=== PATIENT | female | born 1940 | race Caucasian/White ===

== ENCOUNTER → 2018-07-03 | Outpatient (CLI) | payer OTHER ==
[~2018-07-03] VITALS: Ht 162.6 cm; Wt 62.9 kg
[~2018-07-03] MED LIST: ASPIRIN325 PO; MAXZIDE-25 MG1 EACH PO; METOPROLOL SUCC50 MG PO; NORCO 7.5-3251 EACH PO; PREMPRO 0.3 MG1 EACH PO; PREVACID 24HR15 MG PO; SIMVASTATIN40 MG PO; SYNTHROID100 MC1 PO
--- NOTE | ~2018-07-03 | HPC ---
[facility] [address] [place] [address] PAIN MANAGEMENT CONSULTATION Name: SERA COY Room #: REG [facility] Deangelo.#: [id number] Admission: 07/03/18 Attend Phys: Tejas Paul MD Discharge: Date of : 44 Report #: [id number] THIS REPORT FOR: //name// CC: Sotero Paul DATE OF SERVICE: 07/03/2018 CHIEF COMPLAINT: Back pain. HISTORY OF PRESENT ILLNESS: The patient is a 77-year-old female who has been referred to the Pain Clinic. She has a history of chronic pain since 1964. Complains of muscle spasms in her lower back at this juncture. Notes that the pain is worse with bending forward. Sitting can be problematic if she does it for a prolonged period of time. Described it as constant continuous cramping and aching sensation. Rates it as a 9 today. It usually as an 8.5. She has been treated for thyroid problems. She has pain in the lower portion of her back near the L5-S1 paraspinous area bilaterally. She has tried rhqv-ryu-ggetpxp medications. Feels that Flexeril at bedtime can be helpful. She has not had back surgery. Denies any bowel or bladder dysfunction as a result of this. ALLERGIES: SULFA. MEDICATIONS: Aspirin 325 mg, Zocor 40 mg, triamterene/hydrochlorothiazide 37.5/25, estrogen, Prempro 0.3 mg tablets, levothyroxine 100 mcg, metoprolol 50 mg daily, hydrocodone 7.5/325. PAST MEDICAL HISTORY: Thyroid disease, joint disease/arthritis. PAST SURGICAL HISTORY: Childbirth x 3, appendectomy. SOCIAL HISTORY: She is retired. REVIEW OF SYSTEMS: Generally good health, fatigue and weakness, wears glasses, glaucoma/cataracts, hearing loss/ringing in the ears, memory loss, confusion, glandular/hormone problem, thyroid. LABORATORY DATA: No laboratory values are available at the time of our interview. PAIN CLINIC ASSESSMENT/PQRS: 1. Osteoarthritis hands, back and ribs. 2. History of rheumatoid arthritis. 3. The patient is not being treated for osteoarthritis. 4. Height 5 feet 4 inches, weight 130 pounds, BMI is 23.8. [address] [address] PAIN MANAGEMENT CONSULTATION Name: SERA COY Room #: REG [facility]#: [id number] Admission: 07/03/18 Attend Phys: Tejas Paul MD Discharge: Date of : 44 Report #: [id number] 5. Vital signs: Blood pressure 127/47, pulse 67, respiratory rate 16, room air saturation 98%. 6. Pain intensity 06/15. 7. Fall risk. The patient has not fallen in the last 3 months. 8. Blood thinner. The patient is not on a blood thinning medication. 9. Hypertension. The patient is not being treated for hypertension. 10. Opioid therapy greater than 6 weeks. The patient is not on opioid medication on a long-term basis. 11. Risk assessment tool, using opioid medications, zero/3, low risk. 12. Functional assessment tool . 13. Recreational drug use. The patient denies use of recreational drugs. 14. Tobacco: The patient has never smoked. 15. Alcohol: The patient denies use of alcoholic beverages. PHYSICAL EXAMINATION: GENERAL: The patient is a well-developed, well-nourished white female. Appears her stated age. She is alert and oriented x 3. Affect is appropriate. Speech is fluent. HEENT: Normocephalic, atraumatic. Extraocular eye muscles intact. Sclerae nonicteric. Mucous membranes are moist. NECK: Without adenopathy or JVD. HEART: Regular rate. S1, S2. LUNGS: Clear to auscultation without rhonchi or rales. ABDOMEN: Nontender. EXTREMITIES: Upper extremity muscle strength is judged to be 5/5 for the major muscle groups. BACK: Low back area, the patient complains of pain and discomfort in the low back area. Notes pain and discomfort with palpation in the left and right posterior superior iliac spine area. Palpation in these areas help increase the patient's pain and discomfort. Anterior and posterior spring tests are negative. Edi sign is negative. Straight leg raises are negative. IMPRESSION: 1. Myofascial pain, low back area, left and right in the paraspinous area near the posterior superior iliac spine. 2. Thyroid disease. 3. Joint disease hands, back, ribs. RECOMMENDATIONS: We discussed treatment options with the patient. Risks and benefits of a trigger point injection to the affected areas were discussed. The patient has pain and discomfort which indicate trigger points in the left as well as the right posterior superior iliac spine area. The patient notes worsening of pain and these reproduce the pain and discomfort which she is complaining of in the low back area. PROCEDURE NOTE: The patient was placed on the bed, perpendicular to the bed. [facility] [address] [place] [address] PAIN MANAGEMENT CONSULTATION Name: SERA COY Room #: REG CL[facility]#: [id number] Admission: 07/03/18 Attend Phys: Tejas Paul MD Discharge: Date of : 42 Report #: [id number] The bed was elevated. A chair was placed under her feet. The patient lean forward as though she were going to tie her shoes. Palpation in the area of the left as well as the right posterior superior iliac spine area reproduced the patient's pain and discomfort. We discussed the risks and benefits of trigger point injections. They include but are not limited to infection, increased muscle soreness, worsening of pain, no improvement in pain, bleeding, nerve damage. The patient elects to proceed. The patient's back was sterilely prepped with a chlorhexidine solution and allowed to dry the left and the right side. Her trigger point on the right side was identified near the gluteus rosalva and latissimus dorsi trigger point was noted. A 25-gauge needle was then advanced into the area of discomfort. The patient states this did reproduce her discomfort. Total of 80 mg Depo-Medrol, ____ 6 mL, of 0.5% bupivacaine was injected. The patient tolerated that injection well. The contralateral side was treated in a like manner. A 25-gauge needle was then advanced into the area of the gluteus rosalva near the latissimus dorsi. This did reproduce the patient's pain as well. A 25-gauge needle was advanced into the area of the trigger point. The patient states this was in the middle of the trigger point. Aspiration did not produce any pain. A total of 8 mL of 0.5% bupivacaine and 80 mg Depo-Medrol was injected. The patient tolerated the procedure well. There were no complications. She remained in the Pain Clinic for an appropriate amount of time. She will follow up in the future as needed. We would like to thank you for letting us participate in her care. We hope she can tell continues to improve. <ELECTRONICALLY SIGNED> By: Tejas Paul MD 07/20/18 [id number] Tejas Paul MD /nt
[2018-07-03 09:49] VITALS: BP 127/47
== END | disposition home or self-care (01) ==
LOC: PAIN 08:53
DX: M79.1 Myalgia (principal); G89.29 Other chronic pain; M54.9 Dorsalgia, unspecified; E07.9 Disorder of thyroid, unspecified; M19.90 Unspecified osteoarthritis, unspecified site; Z98.890 Other specified postprocedural states; Z88.2 Allergy status to sulfonamides; Z79.82 Long term (current) use of aspirin; Z79.899 Other long term (current) drug therapy; Z79.891 Long term (current) use of opiate analgesic; Z98.49 Cataract extraction status, unspecified eye

== ENCOUNTER → 2018-07-13 | Outpatient (CLI) | payer OTHER ==
[~2018-07-13] VITALS: Ht 162.6 cm; Wt 62.5 kg
[2018-07-13 09:44] VITALS: BP 116/67
== END | disposition home or self-care (01) ==
LOC: PAIN 07:11
DX: M79.18 Myalgia, other site (principal); M54.5 Low back pain; Z88.2 Allergy status to sulfonamides; Z79.891 Long term (current) use of opiate analgesic; Z98.890 Other specified postprocedural states

== ENCOUNTER → 2018-07-29 | Outpatient (CLI) | payer OTHER ==
[~2018-07-29] VITALS: Ht 162.6 cm; Wt 63.3 kg
[~2018-07-29] MED LIST changes: +NEURONTIN 300300 M1 PO
--- NOTE | ~2018-07-29 | HPC ---
[facility] [place] [address] [address] [place] [address] PAIN MANAGEMENT CONSULTATION Name: SERA COY Room #: REG [facility] M..#: [id number] Admission: 07/29/18 Attend Phys: Tejas Paul MD Discharge: Date of : 44 Report #: [id number] THIS REPORT FOR: //name// CC: Sotero Paul DATE OF SERVICE: 07/29/2018 REASON FOR FOLLOWUP: "Pain improved after the injection, but still it is really bad." HISTORY OF PRESENT ILLNESS: The patient is a 77-year-old female who has been seen in the Pain Clinic because of chronic pain. She underwent trigger point injections at the last visit, she gleaned benefits from those. She has noted a return of her pain and discomfort. She rates her pain as 8/10 at this juncture. She felt that the injections were helpful, but she still has pain, which has recurred. She is unable to engage in activities of daily living because of the pain. Walking is somewhat problematic because of the discomfort. She has returned to the Pain Clinic with the hopes of undergoing another treatment. ALLERGIES: SULFA. MEDICATIONS: Aspirin 325 mg, Zocor 40 mg, triamcinolone/hydrochlorothiazide 37.5/25, estrogen, Prempro 0.3 mg tablets, levothyroxine 100 mcg, metoprolol 50 mg daily, hydrocodone 7.5/325. PAIN CLINIC ASSESSMENT AND PQRS: 1. Osteoarthritis involving the hands, back, and ribs. 2. History of rheumatoid arthritis: The patient is being treated for rheumatoid arthritis. 3. Height 5 feet 4 inches, weight 139 pounds, BMI is 24. 4. Vital signs: Blood pressure 110/59, pulse 76, respiratory rate 16, room air saturation 98%. 5. Pain intensity: 8/10. 6. Fall risk: The patient has not fallen in the last 3 months. 7. Blood thinner: The patient is not on a blood thinning medication. 8. Hypertension: The patient is not being treated for hypertension. 9. Opioid therapy greater than 6 weeks: The patient is not receiving opioid medication on a regular basis. 10. Risk assessment tool: 0/3, low risk for opioid use. 11. Functional assessment tool: 42/70. 12. Recreational drug use: The patient denies use of recreational drugs. 13. Tobacco: The patient denies use of tobacco. 14. Alcohol use: The patient denies use of alcoholic beverages on a regular basis. [address] [address] PAIN MANAGEMENT CONSULTATION Name: SERA COY Room #: REG [facility]#: [id number] Admission: 07/29/18 Attend Phys: Tejas Paul MD Discharge: Date of : 44 Report #: [id number] PHYSICAL EXAMINATION: GENERAL: The patient is a well-developed, well-nourished, white female. She appears her stated age. She is alert and oriented x 3. Her affect is appropriate. Speech is fluent. HEENT: Normocephalic, atraumatic. Extraocular eye muscles intact. Sclerae nonicteric. Mucous membranes are moist. NECK: Without adenopathy or JVD. HEART: Regular rate. S1 and S2. EXTREMITIES: Upper extremity muscle strength is judged to be 5/5 for the major muscle groups. LUNGS: Clear to auscultation without rhonchi or rales. ABDOMEN: Nontender with bowel sounds present. LOW BACK: The patient has pain and discomfort in the lower portion of her back near the left and right posterior superior iliac spine areas. Palpation in these areas again reproduced pain and discomfort, which the patient is complaining of. Anterior and posterior spring tests are negative. Edi sign is negative. Straight leg raises are negative. IMPRESSION: 1. Myofascial pain involving the low back in the left and right paraspinous areas near the posterior superior iliac spine. 2. Thyroid disease. 3. Joint disease in hands, back, and ribs. RECOMMENDATIONS: We discussed treatment options with the patient. She improved after the last trigger point injections. Her pain has recurred. Palpation on the physical exam still reproduces pain and discomfort, which are of myofascial nature in the lower portion of her back. We will proceed with another injection. Risks and benefits of the procedure were again reviewed. They include but are not limited to infection, worsening of pain, bleeding or nerve damage. The patient elects to proceed. PROCEDURE NOTE: The patient was placed in a sitting position. She was perpendicular to the bed. A chair was placed under her feet. Her back was sterilely prepped with a Betadine solution. The patient's trigger points were noted on the left and the right side. A 25-gauge needle was then advanced on the right side into the area of the posterior superior iliac spine near the gluteus rosalva and latissimus dorsi. A 25-gauge needle was then advanced into the area of the trigger point. The patient states this did reproduce her pain. Aspiration of this area was negative. A total of 8 mL of 0.5% bupivacaine and 80 mg Depo-Medrol was injected on the left side. The right side was treated in a like fashion. At trigger point #2, a 25-gauge needle was advanced to the area of the gluteus rosalva and latissimus dorsi. Trigger point was noted. Aspiration was negative. Total of 8 mL of 0.5% bupivacaine and 80 mg Depo-Medrol was injected. The patient tolerated the procedure well. There were [facility] [address] [place] [address] PAIN MANAGEMENT CONSULTATION Name: SERA COY Room #: REG [facility].#: [id number] Admission: 07/29/18 Attend Phys: Tejas Paul MD Discharge: Date of : 42 Report #: [id number] no complications. She remained in the Pain Clinic for an appropriate amount of time. The patient's pain decreased to 0 at the time of discharge. There were no complications. She will follow up in the near future as needed. We would like to thank you for letting us participate in her care. We hope she continues to improve. By: [id number] Tejas Paul MD /jaun
[2018-07-29 09:45] VITALS: BP 110/59
== END | disposition home or self-care (01) ==
LOC: PAIN 07:01
DX: M79.18 Myalgia, other site (principal); G89.29 Other chronic pain; E07.9 Disorder of thyroid, unspecified; M19.90 Unspecified osteoarthritis, unspecified site; Z88.2 Allergy status to sulfonamides; Z79.82 Long term (current) use of aspirin; Z79.891 Long term (current) use of opiate analgesic

== ENCOUNTER → 2018-08-19 | Outpatient (CLI) | payer OTHER | LOC: RAD 11:55 | DX: Z12.31 Encounter for screening mammogram for malignant neoplasm of breast (principal) ==

== ENCOUNTER 2020-05-16 12:03 | Emergency (ER) | payer OTHER ==
[~2020-05-16] VITALS: Ht 162.6 cm; Wt 59.0 kg
[2020-05-16 13:23] LABS: ABSOLUTE NEUTROPHILS 3.3 thou/uL (1.4-8.2); BASOPHILS 0.8 % (0.0-2.0); EOSINOPHILS 1.3 % (0.0-3.0); HEMATOCRIT 42.4 % (37.0-47.0); HEMOGLOBIN 14.4 gm/dL (12.0-15.0); LYMPHOCYTES 21.3 % (24.0-44.0); MCH 30.9 pg (26.0-34.0); MCHC 33.9 g/dL (28.0-37.0); MCV 91.1 fL (80.0-100.0); MONOCYTES 10.5 % (1.0-8.0); PLATELET COUNT 194 thou/uL (150-400); POLYS 66.1 % (36.0-66.0); RBC 4.66 mil/uL (4.20-5.00); RDW 13.2 % (10.5-14.5)
[2020-05-16 13:34] LABS: ANION GAP 7 mmol/L (7-16); BUN 16 mg/dL (7-18); CALCIUM 9.8 mg/dL (8.5-10.1); CHLORIDE 99 mmol/L (98-107); CO2 32 mmol/L (21-32); CREATININE 0.8 mg/dL (0.6-1.0); GLUCOSE 111 mg/dL (74-106); POTASSIUM 3.2 mmol/L (3.5-5.1); SODIUM 138 mmol/L (136-145)
[2020-05-16 13:44] LABS: ALBUMIN 3.8 g/dL (3.4-5.0); LIPASE 46 U/L (73-393); SGOT 15 U/L (15-37); SGPT 14 U/L (30-65); TOTAL BILIRUBIN 0.6 mg/dL (0.2-1.0); TROPONIN-I <0.06 ng/mL (<0.06)
[2020-05-16 14:45] LABS: URINE BILIRUBIN NEGATIVE (Negative); URINE BLOOD NEGATIVE (Negative); URINE CLARITY CLEAR; URINE COLOR YELLOW; URINE GLUCOSE-RANDOM* NEGATIVE (Negative); URINE KETONES NEGATIVE (Negative); URINE LEUKOCYTES-REFLEX 1+ (Negative); URINE NITRITE-REFLEX NEGATIVE (Negative); URINE PROTEIN (DIPSTICK) NEGATIVE (Negative); URINE SPECIFIC GRAVITY 1.015 (1.005-1.035); URINE UROBILINOGEN 0.2 E.U./dl (0.2-1.0)
[2020-05-16 15:25] LABS: BACTERIA-REFLEX >30 Many /HPF (None Seen); CASTS None Seen /LPF (None Seen); CRYSTALS None Seen /LPF (None Seen); MUCUS 4-6 Moderate strn/LPF (None Seen); SQUAMOUS >10 Many /LPF (0-3); URINE RBC None Seen /HPF (0-2); URINE WBC-REFLEX 6-15 Few /HPF (0-5)
[2020-05-16] MEDS ORDERED: REGLAN 10 MG TA10 MG PO (15:34)
--- NOTE | 2020-05-16 15:42 | EKG ---
[facility] [place] [address] [place] [address] ELECTROCARDIOGRAM REPORT Name: SERA COY Room #: REG [facility].#: [id number] Admission: 05/16/20 Attend Phys: Discharge: Date of : 44 Report #: [id number] THIS REPORT FOR: cc: Sotero [place] MD, Mark S. MD Couchonnal, Luis F. MD ~ THIS REPORT FOR: //name// [facility] ED Test Date: 2020-05-16 Test Time: 12:53:49 Pat Name: SERA COY Department: Room: Gender: F Submersible Pilot: : 1940 Requested By: Diana Serrano Order Number: [id number] MD: Eduardo Escobar Measurements Intervals [place] Rate: 59 P: 47 VT: 181 QRS: 20 QRSD: 88 T: 7 QT: 442 QTc: 438 Interpretive Statements Sinus rhythm No previous ECG available for comparison Electronically Signed On 05-16-2020 15:42:09 CDT by Eduardo Escobar [email or web address] <ELECTRONICALLY SIGNED> By: Eduardo Escobar MD 05/16/20 1542 [id number] Eduardo Escobar MD /CATA
[2020-05-16 16:05] VITALS: BP 117/50
== END 2020-05-16 16:05 | disposition home or self-care (01) ==
LOC: ER 12:03
PROVIDERS: Physician Assistant
DX: E87.6 Hypokalemia (principal); R11.0 Nausea; R63.0 Anorexia; R63.4 Abnormal weight loss; Z90.49 Acquired absence of other specified parts of digestive tract; Z79.899 Other long term (current) drug therapy; Z88.2 Allergy status to sulfonamides